=== PATIENT | female | born 1985 ===

== ENCOUNTER 2024-02-22 01:30 | Inpatient (IN) | payer BC ==
[2024-02-22] MEDS: ELECTROLYTE-148 SOLN 1,000 ML IV SCH ×2 (02:45→10:36)
[2024-02-22] MEDS: VANCOMYCIN 1,750 MG in DEXTROSE 5%-WATER - 500 ML IVPB SCH (03:30)
[2024-02-22 04:11] LABS: BASO % 0.6 % (0-2.0); EOS % 0.2 % (0-4.5); HEMATOCRIT 36.8 % (32.4-45.2); HEMOGLOBIN 12.6 GM/dL (10.7-15.3); LYMPH % 21.7 % (8-40); MCH 33.8 pg (25.7-33.7); MCHC 34.3 g/dl (32.0-36.0); MEAN CELL VOLUME 98.4 fl (80-96); MEAN PLT VOLUME 10.2 fl (7.5-11.1); MONO % 5.3 % (3.8-10.2); NEUT % 72.2 % (42.8-82.8); PLATELET COUNT 175 10^3/uL (134-434); RBC 3.74 M/mm3 (3.60-5.2); RDW 14.1 % (11.6-15.6); WHITE BLOOD COUNT 11.3 K/mm3 (4.0-10.0)
[2024-02-22 04:21] LABS: INR 1.02 (0.83-1.09); PROTHROMBIN TIME (PATIENT) 11.5 SEC (9.7-13.0)
[2024-02-22 04:23] LABS: ACTIVATED PTT 27.5 SECONDS (25.2-36.5)
[2024-02-22] MEDS ORDERED: FENTANYL/BUPIVACAINE/NS/PF - PCEA - 50 ML DISP.SYRIN EP ONE ×2 (04:45→09:36)
[2024-02-22 04:48] LABS: POTASSIUM 4.2 mmol/L (3.5-5.1)
[2024-02-22 04:50] LABS: BLOOD UREA NITROGEN 14.9 mg/dL (7-18)
[2024-02-22 04:53] LABS: CREATININE 0.7 mg/dL (0.55-1.3)
[2024-02-22] MEDS: FENTANYL/BUPIVACAINE/NS/PF - PCEA - 50 ML DISP.SYRIN EP SCH (05:10)
[2024-02-22] MEDS ORDERED: NALOXONE HCL 0.4 MG/ML VIAL IVPUSH PRN (05:18)
[2024-02-22] MEDS ORDERED: OXYTOCIN 30 UNITS in 0.9% NS 30 UNIT/500 ML INFUS.BAG IVPB ONE (09:17)
[2024-02-22] MEDS: OXYTOCIN 30 UNITS in 0.9% NS 30 UNIT/500 ML INFUS.BAG IVPB SCH (09:25)
[2024-02-22] MEDS ORDERED: OXYTOCIN 10 UNITS/ML VIAL ONE (13:20)
[2024-02-22] MEDS ORDERED: ONDANSETRON 4 MG/2 ML VIAL ONE (13:20)
[2024-02-22] MEDS ORDERED: KETOROLAC TROMETHAMINE 30 MG/1 ML VIAL ONE (13:20)
[2024-02-22] MEDS ORDERED: morphine SULFATE/PF 1 MG/2 ML (2cc Syringe - QUVA) ONE (13:20)
[2024-02-22] MEDS ORDERED: PHENYLEPHRINE HCL 10 MG/1 ML SINGLE DOSE VIAL ONE (13:20)
[2024-02-22] MEDS ORDERED: FENTANYL CITRATE/PF 50 MCG/ML VIAL ONE (13:21)
[2024-02-22] MEDS ORDERED: CLINDAMYCIN PHOSPHATE 600 MG/4 ML VIAL ONE (13:27)
[2024-02-22 14:59] LABS: CORD BASE EXCESS -2.2 mmol/L (0-2); CORD PCO2 41.3 mmHg (30-78); CORD pH 7.364 (7.14-7.44)
[2024-02-22 14:59] LABS: CORD BASE EXCESS 0.6 mmol/L (0-2); CORD HCO3 26.7 mmHg (20-29); CORD PCO2 48.3 mmHg (30-78); CORD pH 7.361 (7.14-7.44)
[2024-02-22] MEDS ORDERED: METHYLERGONOVINE MALEATE 0.2 MG/1 ML AMP IM PRN (15:56)
[2024-02-22] MEDS: ACETAMINOPHEN 1000 MG/100 ML BAG IVPB PRN (17:41)
[2024-02-22] MEDS: CLINDAMYCIN 600MG PREMIX IVPB 600 MG/50 ML BAG IVPB SCH (18:15)
[2024-02-22] MEDS: GENTAMICIN 80 MG PREMIXED IVPB 80 MG/100 ML BAG IVPB SCH (18:52)
[2024-02-22] MEDS: IBUPROFEN 800 MG/8 ML IJ IVPB PRN (20:10)
[2024-02-23] MEDS: OXYTOCIN 20 UNITS in 0.9% NS 20 UNIT/1,000 ML INFUS.BAG IV SCH (04:04)
[2024-02-23] MEDS: oxyCODONE HCL 5 MG TABLET PO PRN (06:03)
[2024-02-23] MEDS: SIMETHICONE 80 MG TAB.CHEW (FP) PO PRN (06:03)
[2024-02-23 07:34] LABS: BASO % 0.2 % (0-2.0); EOS % 0.5 % (0-4.5); HEMATOCRIT 28.1 % (32.4-45.2); HEMOGLOBIN 9.4 GM/dL (10.7-15.3); LYMPH % 20.7 % (8-40); MCH 33.3 pg (25.7-33.7); MCHC 33.5 g/dl (32.0-36.0); MEAN CELL VOLUME 99.4 fl (80-96); MONO % 4.1 % (3.8-10.2); NEUT % 74.5 % (42.8-82.8); PLATELET COUNT 136 10^3/uL (134-434); RBC 2.83 M/mm3 (3.60-5.2); WHITE BLOOD COUNT 9.5 K/mm3 (4.0-10.0)
[2024-02-23] MEDS: IBUPROFEN 600 MG TABLET (FP) PO PRN (08:20)
[2024-02-23] MEDS: ENOXAPARIN NA (PORCINE) 40 MG/0.4 ML DISP.SYRIN SQ SCH (10:03)
[2024-02-23] MEDS: IRON SUCROSE INJECTION 200 MG in SODIUM CHLORIDE 100 ML IVPB ONE (11:00)
[2024-02-23] MEDS: ACETAMINOPHEN 325 MG TABLET (FP) PO PRN (11:51)
[2024-02-23] MEDS ORDERED: BISACODYL 10 MG SUPP.RECT RC PRN (15:57)
[2024-02-24 21:53] VITALS: TEMP 98.5
[2024-02-25 06:12] LABS: BASO % 0.5 % (0-2.0); EOS % 1.5 % (0-4.5); HEMATOCRIT 29.8 % (32.4-45.2); LYMPH % 29.5 % (8-40); MCH 33.5 pg (25.7-33.7); MCHC 33.6 g/dl (32.0-36.0); MEAN CELL VOLUME 99.9 fl (80-96); MEAN PLT VOLUME 8.7 fl (7.5-11.1); MONO % 6.2 % (3.8-10.2); NEUT % 62.3 % (42.8-82.8); PLATELET COUNT 182 10^3/uL (134-434); RBC 2.99 M/mm3 (3.60-5.2); RDW 13.9 % (11.6-15.6); WHITE BLOOD COUNT 7.8 K/mm3 (4.0-10.0)
[2024-02-25] MEDS: DOCUSATE SODIUM 100 MG CAPSULE (FP) PO PRN (10:30)
[2024-02-25 12:06] VITALS: BP 120/82; PULSE 70; RESP 16
== END 2024-02-25 13:05 | disposition home or self-care (01) | DRG 788 ==
LOC: JLDR 01:30 → J3W 17:25
PROVIDERS: ADMIT Obstetrics & Gynecology; ATTEND Obstetrics & Gynecology
PROC: 10D00Z1 Extraction of Products of Conception, Low, Open Approach (ICD-10-PCS; principal; 2024-02-22)
DX: O99.824 Streptococcus B carrier state complicating childbirth (principal); O34.219 Maternal care for unspecified type scar from previous cesarean delivery; O42.92 Full-term premature rupture of membranes, unspecified as to length of time between rupture and onset of labor; Z3A.39 39 weeks gestation of pregnancy; Z37.0 Single live birth
CPT/HCPCS: 36415; 36600; 59409; 80048; 82803; 85025; 85610; 85730; 86780; 86850; 86900; 86901; 88307-TC; J0131; J1756